=== PATIENT | female | born 1985 | race Caucasian/White ===

== ENCOUNTER → 2021-06-17 | Outpatient (CLI) | payer OTHER ==
[~2021-06-17] MED LIST: PROHANCE 279.3MG/ML 5ML VIAL As Ordered ONE
--- NOTE | 2021-06-17 23:07 | REPVR ---
PROCEDURE INFORMATION: Exam: MR Head Without and With Contrast, Sella Exam date and time: 06/17/2021 6:52 PM Age: 36 years old Clinical indication: Condition or disease; Other: Benign neoplasm of pituitary gland TECHNIQUE: Imaging protocol: MR of the head without and with intravenous contrast. Exam focused on the sella. Contrast material: PROHANCE; Contrast volume: 10 ml; Contrast route: INTRAVENOUS (IV); COMPARISON: No relevant prior studies available. FINDINGS: Brain: Small approximately 2.8 mm focus of decreased enhancement within the right aspect of the pituitary gland may reflect microadenoma. 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 Minimal leftward deviation of the pituitary infundibulum. The optic chiasm is normal. No intracranial hemorrhage or extra-axial fluid collection. No evidence of mass effect or midline shift. No white matter abnormalities. No restricted diffusion to suggest acute infarct. Cerebral ventricles: Ventricles, cisterns, and sulci are normal. Bones/joints: Unremarkable. IMPRESSION: 1. Small approximately 2.8 mm focus of decreased enhancement within the right aspect of the pituitary gland may reflect microadenoma. 2. 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 Electronically signed by: Floyd Ramos On 06/17/2021 23:06:25 PM
== END ==
LOC: M RAD 17:43
PROVIDERS: ATTEND Pediatrics
DX: D35.2 Benign neoplasm of pituitary gland (principal)
CPT/HCPCS: 70553; A9576

== ENCOUNTER → 2021-11-12 | Outpatient (CLI) | payer OTHER ==
[2021-11-12 11:44] LABS: THYROID STIMULATING HORMONE 2.91 uIU/ML (0.358-3.740)
[2021-11-12 11:47] LABS: CORTISOL AM 15.8 UG/DL (4.3-22.4); FOLLICLE STIMULATING HORMONE 8.4 mIU/mL; LUTEINIZING HORMONE 4.8 mIU/mL
== END ==
LOC: M LAB 11-11 13:58
PROVIDERS: ATTEND Nurse Practitioner Family
DX: D35.2 Benign neoplasm of pituitary gland (principal)

== ENCOUNTER → 2022-08-06 | Outpatient (CLI) | payer OTHER | LOC: M WHC 09:58 | PROVIDERS: ATTEND Pediatrics | DX: N63.21 Unspecified lump in the left breast, upper outer quadrant (principal) ==

== ENCOUNTER → 2023-07-07 | Outpatient (REF) | payer OTHER ==
[2023-07-07 14:08] LABS: CHOLESTEROL RISK RATIO 3.36 (<5); HDL CHOLESTEROL 62.2 MG/DL (>40); LDL CHOLESTEROL 132.6 MG/DL (<100); NON-HDL-C 146.8 MG/DL; THYROID STIMULATING HORMONE 1.975 uIU/ML (0.55-4.78)
== END ==
LOC: M LAB REF 12:14
PROVIDERS: ATTEND Pediatrics
DX: D35.2 Benign neoplasm of pituitary gland (principal); E78.5 Hyperlipidemia, unspecified

== ENCOUNTER 2023-11-16 12:11 | Emergency (ER) | payer OTHER ==
[~2023-11-16] VITALS: Ht 124.5 cm; Wt 49.8 kg
[2023-11-16] MEDS ORDERED: KETO10TAB (12:24)
[2023-11-16] MEDS ORDERED: BUTA-198 (12:24)
[2023-11-16] MEDS ORDERED: JENC0.35 (12:24)
[2023-11-16] MEDS ORDERED: CETI-24 (12:24)
[2023-11-16] MEDS ORDERED: PROM12.56 (12:24)
[2023-11-16 14:14] LABS: HEMATOCRIT 43.3 % (36.0-47.0); HEMOGLOBIN 14.7 g/dl (12.0-15.5); MEAN CORPUSCULAR HGB CONC 33.9 g/dl (32.0-36.5); MEAN CORPUSCULAR VOLUME 97.1 fl (80.0-96.0); PLATELET COUNT, AUTOMATED 172 10^3/uL (150-450); RED BLOOD COUNT 4.46 10^6/uL (4.00-5.40); WHITE BLOOD COUNT 5.4 10^3/uL (4.0-10.0)
[2023-11-16 14:43] LABS: BLOOD UREA NITROGEN 11 MG/DL (9-23); CALCIUM LEVEL 9.1 MG/DL (8.5-10.1); CARBON DIOXIDE LEVEL 25 MMOL/L (20-31); CHLORIDE LEVEL 103 MMOL/L (98-107); CREATININE FOR GFR 0.65 MG/DL (0.55-1.30); GLOMERULAR FILTRATION RATE > 60.0 (>60); GLUCOSE, FASTING 78 MG/DL (60-100); SODIUM LEVEL 137 MMOL/L (136-145)
[2023-11-16 14:45] LABS: FREE T4 0.99 NG/DL (0.89-1.76); THYROID STIMULATING HORMONE 0.969 uIU/ML (0.55-4.78)
[2023-11-16] MEDS: diphenhydrAMINE 50MG/ML VIAL IV ONE (15:56)
[2023-11-16] MEDS: dexAMETHasone 20MG/5ML VIAL IV ONE (15:56)
[2023-11-16] MEDS: KETOROLAC 30 MG/ML 1ML VIAL IV ONE (15:56)
[2023-11-16] MEDS: METOCLOPRAMIDE INJ 10MG/2ML VIAL IV ONE (15:56)
[2023-11-16] MEDS: NS 1,000 ML IV ONE (15:56)
[2023-11-16 16:19] VITALS: BP 121/79; TEMP 97.6; O2SAT 100
== END 2023-11-16 17:08 | disposition home or self-care (01) ==
LOC: M ED 12:11
DX: G43.909 Migraine, unspecified, not intractable, without status migrainosus (principal); Z88.8 Allergy status to other drugs, medicaments and biological substances
CPT/HCPCS: 80048; 83735; 84439; 84443; 84702; 85027; 96361; 96374; 96375; 99283; 99284; J1100; J1200; J1885; J2765

== ENCOUNTER 2023-12-13 18:29 | Emergency (ER) | payer OTHER ==
[~2023-12-13] VITALS: Ht 149.9 cm; Wt 50.6 kg
[~2023-12-13 18:29] MED LIST changes: +BUTA-198; +CETI-24; +JENC0.35; +KETO10TAB; -PROHANCE 279.3MG/ML 5ML VIAL As Ordered ONE; +PROM12.56
[2023-12-13] MEDS: ACETAMINOPHEN 500 MG TAB PO ONE (19:28)
[2023-12-13 19:47] LABS: HEMATOCRIT 40.7 % (36.0-47.0); HEMOGLOBIN 13.9 g/dl (12.0-15.5); LYMPH # 0.2 10^3/uL (1.5-5.0); LYMPH % 3.9 % (24.0-44.0); MEAN CORPUSCULAR HEMOGLOBIN 32.2 pg (27.0-33.0); MEAN CORPUSCULAR HGB CONC 34.2 g/dl (32.0-36.5); MEAN CORPUSCULAR VOLUME 94.2 fl (80.0-96.0); MONO # 0.2 10^3/uL (0.0-0.8); MONO % 3.1 % (2.0-8.0); NEUTROPHILS # 5.7 10^3/uL (1.5-8.5); NEUTROPHILS % 92.7 % (36.0-66.0); PLATELET COUNT, AUTOMATED 162 10^3/uL (150-450); RED BLOOD COUNT 4.32 10^6/uL (4.00-5.40); WHITE BLOOD COUNT 6.1 10^3/uL (4.0-10.0)
[2023-12-13 20:01] LABS: HCG, SERUM QUALITATIVE NEGATIVE (NEGATIVE)
[2023-12-13 20:02] LABS: LIPASE 41 U/L (12-53)
[2023-12-13 20:04] LABS: ALBUMIN 3.8 G/DL (3.2-5.2); ALKALINE PHOSPHATASE 37 U/L (46-116); ALT/SGPT 18 U/L (7.0-40); AST/SGOT 13 U/L (<34); BILIRUBIN,DIRECT 0.3 MG/DL (<0.4); BILIRUBIN,TOTAL 0.8 MG/DL (0.3-1.2); BLOOD UREA NITROGEN 14 MG/DL (9-23); CALCIUM LEVEL 7.8 MG/DL (8.5-10.1); CARBON DIOXIDE LEVEL 24 MMOL/L (20-31); CHLORIDE LEVEL 105 MMOL/L (98-107); CREATININE FOR GFR 0.74 MG/DL (0.55-1.30); GLOMERULAR FILTRATION RATE > 60.0 (>60); GLUCOSE, FASTING 120 MG/DL (60-100); POTASSIUM SERUM 3.6 MMOL/L (3.5-5.1); SODIUM LEVEL 137 MMOL/L (136-145); TOTAL PROTEIN 6.4 G/DL (5.7-8.2)
[2023-12-14] MEDS: ONDANSETRON 4MG 2ML VIAL IV ONE (01:10)
[2023-12-14] MEDS: NS 1,000 ML IV ONE (01:10)
[2023-12-14] MEDS ORDERED: ONDA4TAB6 PO (01:27)
[2023-12-14 02:54] VITALS: BP 110/62; TEMP 98.1; O2SAT 100
== END 2023-12-14 02:56 | disposition home or self-care (01) ==
LOC: M ED 18:29
DX: A05.9 Bacterial foodborne intoxication, unspecified (principal); R11.11 Vomiting without nausea; G43.909 Migraine, unspecified, not intractable, without status migrainosus; Z88.8 Allergy status to other drugs, medicaments and biological substances; Z79.899 Other long term (current) drug therapy; Z79.1 Long term (current) use of non-steroidal anti-inflammatories (NSAID)
CPT/HCPCS: 80048; 80076; 81001; 83690; 84703; 85025; 87486; 87581; 87633; 87798; 96361; 96374; 99284; J2405

== ENCOUNTER → 2024-07-05 | Outpatient (REF) | payer OTHER ==
[~2024-07-05] MED LIST changes: +ONDA-282 PO
[2024-07-05 14:18] LABS: BASO % 0.8 % (0.0-1.0); HEMATOCRIT 42.7 % (36.0-47.0); HEMOGLOBIN 14.3 g/dl (12.0-15.5); LYMPH # 1.8 10^3/uL (1.5-5.0); LYMPH % 44.7 % (24.0-44.0); MEAN CORPUSCULAR HEMOGLOBIN 32.4 pg (27.0-33.0); MEAN CORPUSCULAR HGB CONC 33.5 g/dl (32.0-36.5); MEAN CORPUSCULAR VOLUME 96.8 fl (80.0-96.0); MONO # 0.3 10^3/uL (0.0-0.8); MONO % 6.3 % (2.0-8.0); NEUTROPHILS # 1.9 10^3/uL (1.5-8.5); NEUTROPHILS % 47.2 % (36.0-66.0); PLATELET COUNT, AUTOMATED 201 10^3/uL (150-450); RED BLOOD COUNT 4.41 10^6/uL (4.00-5.40); WHITE BLOOD COUNT 3.9 10^3/uL (4.0-10.0)
[2024-07-05 14:27] LABS: BLOOD UREA NITROGEN 12 MG/DL (9-23); CALCIUM LEVEL 9.9 MG/DL (8.5-10.1); CARBON DIOXIDE LEVEL 30 MMOL/L (20-31); CHLORIDE LEVEL 104 MMOL/L (98-107); CREATININE FOR GFR 0.72 MG/DL (0.55-1.30); GLOMERULAR FILTRATION RATE > 60.0 (>60); GLUCOSE, FASTING 79 MG/DL (60-100); POTASSIUM SERUM 4.4 MMOL/L (3.5-5.1); SODIUM LEVEL 141 MMOL/L (136-145)
[2024-07-05 14:29] LABS: PTH INTACT 19.5 PG/ML (18.5-88.0)
[2024-07-05 15:18] LABS: HEMOGLOBIN A1c 4.9 % (4.0-6.0)
== END ==
LOC: M LAB REF 13:10
PROVIDERS: ATTEND Pediatrics
DX: D35.2 Benign neoplasm of pituitary gland (principal); E83.51 Hypocalcemia; D75.89 Other specified diseases of blood and blood-forming organs; R73.9 Hyperglycemia, unspecified

== ENCOUNTER → 2024-08-02 | Outpatient (CLI) | payer OTHER | LOC: M WHC 11:04 | PROVIDERS: ATTEND Physician Assistant Medical | DX: N63.25 Unspecified lump in the left breast, overlapping quadrants (principal) ==

== ENCOUNTER → 2024-11-29 | Outpatient (REF) | payer OTHER ==
[2024-11-29 14:46] LABS: FREE T4 1.26 NG/DL (0.89-1.76)
[2024-11-29 14:47] LABS: LUTEINIZING HORMONE 0.6 mIU/ML; PROLACTIN 6.54 NG/ML; THYROID STIMULATING HORMONE 2.458 uIU/ML (0.55-4.78)
[2024-11-29 15:03] LABS: FOLLICLE STIMULATING HORMONE 3.3 mIU/ML
== END ==
LOC: M LAB REF 14:09
PROVIDERS: ATTEND Pediatrics
DX: D35.2 Benign neoplasm of pituitary gland (principal)

== ENCOUNTER → 2025-04-20 | Outpatient (CLI) | payer OTHER ==
[2025-04-20 15:46] LABS: CORTISOL AM 4.3 UG/DL (4.3-22.4)
[2025-04-20 15:49] LABS: PROLACTIN 3.18 NG/ML
[2025-04-20 15:51] LABS: FREE T4 1.12 NG/DL (0.89-1.76)
== END ==
LOC: M PLALAB 10:57
PROVIDERS: ATTEND Nurse Practitioner Family
DX: D35.2 Benign neoplasm of pituitary gland (principal)

== ENCOUNTER → 2025-05-15 | Outpatient (CLI) | payer OTHER ==
[~2025-05-15] MED LIST changes: +PROHANCE 279.3MG/ML 5ML VIAL ONE
== END ==
LOC: M PLAIMG 09:39
PROVIDERS: ATTEND Nurse Practitioner Family
DX: D35.2 Benign neoplasm of pituitary gland (principal)
CPT/HCPCS: 70553; A9576

== ENCOUNTER → 2025-07-24 | Outpatient (CLI) | payer OTHER | LOC: M PLAIMG 12:58 | PROVIDERS: ATTEND Nurse Practitioner Family | DX: D35.2 Benign neoplasm of pituitary gland (principal) | CPT/HCPCS: 70553; A9579 ==